=== PATIENT | male | born 1975 | race Caucasian/White ===

== ENCOUNTER 2021-01-22 16:44 | Inpatient (IN) | payer BC, SELFPAY ==
--- NOTE | ~2021-01-22 | CT_ITS ---
EXAMINATION: CT chest abdomen pelvis w con DATE: 01/23/2021 11:37 INDICATION: Lymphoma versus infection. Bodyaches. TECHNIQUE: Computed tomography (CT) of the chest, abdomen, and pelvis was performed with 100 mL Omnip aque-350 intravenous contrast. Automated exposure control and iterative reconstruction technique were employed. The dose-length product was 955.75 mGy-cm. COMPARISON: None FINDINGS: CHEST CT: Cluster small calcified nodules in the left lower lobe along with calcified mediastinal and left caryn r lymph nodes consistent with old granulomatous disease. No pneumonia, pulmonary edema or pleural eff usion. Heart size is normal. No pericardial effusion. No pathologically enlarged thoracic lymphadenop athy. Mild thoracic spondylosis with multiple Schmorl's nodes. No suspicious lytic or blastic bone le sions.. ABDOMEN/PELVIS CT: And a few small hepatic and splenic calcifications consistent with old granulomatous disease. Nonspec ific mild splenomegaly measuring 15.7 cm in maximal length. Gallbladder, pancreas, bilateral adrenal glands and right kidney are normal. Small region of cortical scarring at the upper pole of the left k idney likely sequela of prior infection or infarction. Bowels including the appendix are normal. Blad hadley is normal. Tiny fat-containing left inguinal hernia. No free intraperitoneal gas or fluid. No pat hologically enlarged abdominal or pelvic lymphadenopathy. Mild lumbar spondylosis with additional Werner morl's nodes. No suspicious lytic or blastic bone lesions. IMPRESSION: 1. No acute intrathoracic, abdominal or pelvic process. 2. Nonspecific mild splenomegaly. No pathologically enlarged lymphadenopathy in the chest, abdomen or pelvis to raise concern for lymphoma. Reviewed, dictated and finalized at location A. LRY ENGRAVER
--- NOTE | ~2021-01-22 | XR_ITS ---
EXAMINATION: XR chest 2V 01/22/2021 17:22 INDICATION: Chest tightness PROCEDURE: 2 view chest COMPARISON: 12/04/2011 FINDINGS: The lungs are clear. The cardiomediastinal silhouette is within normal limits. There are no pleural effusions. There is no pneumothorax suspected. IMPRESSION: 1: NO ACUTE CARDIOPULMONARY DISEASE. Reviewed, dictated and finalized at location A. IFICATIONS EXAMINER
--- NOTE | ~2021-01-22 | CT_ITS ---
EXAMINATION: CT soft tissue neck w con DATE: 01/24/2021 13:33 INDICATION: Left neck swelling. Tongue swelling. TECHNIQUE: Computed tomography (CT) of the neck was performed with 75 mL Omnipaque-350 intravenous co ntrast. Automated exposure control and iterative reconstruction technique were employed. The dose-smita gth product was 517.99 mGy-cm. COMPARISON: None FINDINGS: There is mild bilateral submandibular lymphadenopathy. For example, a right submandibular n ode measures 16 x 11 mm. The cervical carotid arteries are normal. There is mild mucosal thickening i n the paranasal sinuses. There are periapical lucencies adjacent to teeth 12, 14, 16, 29, and 31. The re is mild cervical spondylosis. IMPRESSION: 1. Distal disease. 2. Mild bilateral submandibular lymphadenopathy, likely reactive. Reviewed, dictated and finalized at location A. RVISOR TOY ASSEMBLY
[2021-01-22 17:03] VITALS: BP 170/92; PULSE 110; RESP 18; TEMP 37.1; O2SAT 100
--- NOTE | 2021-01-22 17:06 | ECG_ITS ---
Measurements Intervals [place] Rate: 108 P: 15 MI: 158 QRS: 36 QRSD: 92 T: 11 QT: 308 QTc: 413 Interpretive Statements SINUS TACHYCARDIA ABNORMAL ECG Electronically Signed On 01-22-2021 20:13:40 CLARIFICATION OPERATOR by Oliver Eaton D.O.
[2021-01-22 17:23] LABS: Hematocrit 43.4 % (42.0-52.0); Hemoglobin 14.8 g/dL (14.0-18.0); Mean Corpuscular HGB Conc 34.1 g/dl (32-36); Mean Corpuscular Hemoglobin 30.2 pg (26-34); Mean Corpuscular Volume 88.6 fl (80-100); Mean Platelet Volume 8.4 fl (7.4-10.4); Platelet Count Result 211 k/mm3 (150-375)
[2021-01-22 17:33] LABS: Prothrombin Time 12.9 Seconds (11.1-14.7)
[2021-01-22 17:36] LABS: Alanine Aminotransferase 76 U/L (4-50); Albumin Level 4.7 g/dL (3.5-5.1); Alkaline Phosphatase 87 U/L (38-126); Anion Gap 7 mmol/L (8-16); Aspartate Amino Transferase 46 U/L (17-59); Bilirubin,Total 0.8 mg/dL (0.2-1.3); Blood Urea Nitrogen 11 mg/dL (9-20); Carbon Dioxide 27 mmol/L (22-30); Chloride 99 mmol/L (98-107); Estimated CRCL calculation 91 ml/min; Estimated Glomerular Filt Rate > 60; Glucose 112 mg/dL (65-110); Lipase 82 U/L (23-300); Potassium 3.8 mmol/L (3.4-5.0); Sodium 133 mmol/L (137-145)
[2021-01-22 17:50] LABS: Troponin I 0.516 ng/mL (0.000-0.034)
[2021-01-22 18:11] LABS: Lymphocytes Percent Manual 55 % (18-44); Monocytes Absolute Manual 0.88 K/mm3 (0.1-0.90); Monocytes Percent Manual 44 % (3-9); Neutrophils Percent Manual 1 % (46-73); Total Cells Counted 100
[2021-01-22 18:12] LABS: Platelet Estimate Adequate (Adequate)
[2021-01-22 18:13] LABS: Atypical Lymphocytes Present
--- NOTE | 2021-01-22 18:26 | ECG_ITS ---
Measurements Intervals [place] Rate: 103 P: 27 ME: 164 QRS: 17 QRSD: 94 T: 15 QT: 316 QTc: 414 Interpretive Statements SINUS TACHYCARDIA BASELINE ARTIFACT- II, III, AVR, AVL, AVF, V1-V6 BORDERLINE ECG Electronically Signed On 01-24-2021 12:43:19 EXTENSION DIVISION DIRECTOR by Oliver Eaton D.O.
[2021-01-22] MEDS: ASPIRIN 81 MG CHEWABLE TABLET 324 MG PO (18:29)
--- NOTE | 2021-01-22 18:50 | ED.GENADULT ---
HPI - General Adult General Chief complaint: Unspecified Stated complaint: Not feeling well,sore all over,tongue swelling Time Seen by Provider: 01/22/21 18:05 Source: patient Mode of arrival: ambulatory Limitations: no limitations History of Present Illness HPI narrative: 45-year-old male Generally healthy Complains of a 1 day history of subjective fevers, generalized fatigue, body aches This morning he had chest tightness but that has been gone for hours He does not have a productive cough No dysuria or hematuria, no nausea or vomiting or diarrhea Related Data Home Medications Medication Instructions Recorded Confirmed No Home Medications 01/22/21 01/22/21 Allergies Allergy/AdvReac Type Severity Reaction Status Date / Time No Known Allergies Allergy Verified 01/22/21 17:05 Review of Systems Review of Systems: All systems reviewed & are unremarkable except as noted in HPI and below Constitutional: Constitutional: Reports no additional constitutional complaints, Denies chills, Reports excessive sweating, Denies fever(s), Denies headache(s), Reports lethargy and Reports malaise Eyes: Eyes: Reports no additional eye complaints and Denies change in vision ENT: Denies headache(s) and Denies sore throat Cardiovascular: Cardiovascular: Reports chest pain and Denies dyspnea Respiratory: Respiratory: Denies cough and Denies dyspnea Gastrointestinal: Gastrointestinal: Denies abdominal pain, Denies diarrhea and Denies vomiting Genitourinary: Genitourinary: Denies dysuria and Denies urinary frequency Musculoskeletal: Musculoskeletal: Reports back pain, Reports myalgias, Denies deformity, Reports arthralgias, Denies joint swelling, Denies numbness and Reports stiffness Integumentary/Breasts: Skin/Breast: Denies rash and Denies wounds Neurologic: Denies headache(s), Denies focal weakness and Denies numbness Psychiatric: Psychiatric: Reports no additional psychiatric complaints Endocrine: Endocrine: Reports no additional endocrine complaints Hematologic/Lymphatic: Hematologic/Lymphatic: Reports no additional hematologic/lymphatic complaints Allergic/Immunologic: Allergic/Immunologic: Reports no additional allergic/immunologic complaints Exam Const: General: cooperative, healthy appearing and no acute distress Orientation/consciousness: patient oriented x3 (alert) HENMT: Head: normal to inspection, normocephalic and atraumatic Ears: external ears normal General nose exam: no epistaxis Eyes: Conjunctivae: conjunctivae normal EOM: EOMs intact bilaterally Neck: Neck: normal visual inspection, supple and no JVD Resp: Effort & Inspection: normal respiratory effort and not labored Auscultation: clear to auscultation bilaterally, no rales, no rhonchi, no wheezes and other (BS =) Cardio: Rate: regular rate Rhythm: regular rhythm Heart sounds: no murmurs GI: GI Palp: Yes Soft to palpation and No Tenderness to palpation present (GI) Skin: General skin exam: normal color and no rashes or lesions noted Neuro: General: patient oriented x3 (alert) and moves all extremities Speech: normal speech Extrem: General: normal to inspection and no pedal edema Psych: Affect: normal affect Course Course Emergency Course: Tropes stable to slightly downtrending Second EKG also without ischemic changes Discussed with Dr. Rueda with regards to marked neutropenia Spoke with hospitalist for admission Vital Signs Vital signs: Vital Signs Temperature 37.1 C 01/22/21 17:03 Pulse Rate 110 H 01/22/21 17:03 Respiratory Rate 18 01/22/21 17:03 Blood Pressure 170/92 H 01/22/21 17:03 Pulse Oximetry 100 01/22/21 17:03 Temperature 37.1 C 01/22/21 17:03 Pulse Rate 100 01/22/21 20:55 Respiratory Rate 16 01/22/21 20:55 Blood Pressure 135/88 01/22/21 20:55 Pulse Oximetry 97 01/22/21 20:55 Medical Decision Making Medical Records Medical records reviewed: Yes I reviewed the
[2021-01-22 19:24] VITALS: BP 141/99; PULSE 99; RESP 20; O2SAT 98
[2021-01-22 19:27] LABS: Creatine Kinase 320 U/L (55-170); Lactic Acid Reflex 0.6 mmol/L (0.7-2.1)
[2021-01-22 19:31] LABS: CRP 7.1 mg/dL (<1.0)
[2021-01-22 19:38] LABS: Amphetamine Screen Urine Negative (Negative); Barbiturate Screen Urine Negative (Negative); Benzodiazepines Screen Urine Negative (Negative); Cannabinoid Screen Urine Negative (Negative); Cocaine Screen Urine Positive (Negative); Methadone Screen Urine Negative (Negative); Opiate Screen Urine Negative (Negative); Phencyclidine Screen Urine Negative (Negative)
[2021-01-22 19:52] LABS: Erythrocyte Sedimentation Rate 14 mm/hr (0-20)
[2021-01-22 20:42] LABS: Troponin I 0.466 ng/mL (0.000-0.034)
[2021-01-22 20:55] VITALS: BP 135/88; PULSE 100; RESP 16; O2SAT 97
[2021-01-22 23:59] LABS: Troponin I 0.373 ng/mL (0.000-0.034)
[2021-01-23] VITALS (16 sets, daily range): BP systolic 131–146; BP diastolic 78–91; PULSE 80–102; RESP 14–20; TEMP 36.3–36.9; O2SAT 97–100; BMI 24.2
--- NOTE | 2021-01-23 00:10 | ADMGEN ---
This patient, Payam Lee, was admitted to IMU Room 212-01. Patient/family oriented to hospital policies and general routines including ID bracelet, bed and alarms, visiting hours, pain management, procedures, bathroom and other care routines, personal items, smoking policy, room service/diet, and visiting hours. Information on how to activate the Rapid Response Team has been discussed. Patient/Family are encouraged to report perceived risks to care and to ask questions if they do not understand what they are told or what they should do.
[2021-01-23] MEDS: LACTATED RINGERS 1,000 ML 125 ML IV CONT ×2 (00:14→09:08)
[2021-01-23] MEDS: ACETAMINOPHEN 325 MG TABLET 650 MG PO ×3 (04:21→22:27)
--- NOTE | 2021-01-23 05:36 | PM.IMHP ---
H&P: HPI History of Present Illness Date/Time: 01/23/21 05:36 Chief Complaint: Fevers Narrative: This is a 45-year-old male with no significant past medical history patient presented to the emergency room after he has not been feeling well for the last 2 weeks or so he has been having night sweats body aches and pains ,sore throat, left neck subjective swelling poor appetite denies any lymphadenopathies, nausea, vomiting, abdominal pain, diarrhea, has been having cold-like symptoms and chest pain presented to the emergency room and preliminary workup was significant for elevated troponin low neutrophil count U tox was significant for cocaine present, chest x-ray was clear. Hematology-Oncology was consulted and patient has been admitted for further evaluation management and treatment. Review of Systems Review of Systems: Subjective fevers chills night sweats sore throat poor appetite Constitutional: Constitutional: Reports chills, Reports fatigue, Reports fever(s), Reports lethargy, Reports malaise, Reports night sweats and Reports poor appetite Eyes: Eyes: Denies change in vision ENT: Denies dysphagia, Denies nasal congestion, Denies nasal discharge, Denies nasal obstruction, Denies odynophagia and Reports sore throat Cardiovascular: Cardiovascular: Reports chest pain, Denies leg edema, Denies radiating jaw, neck or arm pain, Denies palpitations, Denies dyspnea, Denies dyspnea on exertion and Denies orthopnea Respiratory: Respiratory: Denies cough, Denies excessive phlegm production and Denies wheezing Gastrointestinal: Gastrointestinal: Denies abdominal pain, Denies dyspepsia, Denies heartburn, Denies diarrhea, Denies nausea and Denies vomiting Genitourinary: Genitourinary: Denies dysuria and Denies penile discharge Musculoskeletal: Musculoskeletal: Denies back pain, Reports myalgias and Denies neck pain Integumentary/Breasts: Skin/Breast: Denies erythema and Denies rash Neurologic: Denies dizziness, Denies focal weakness and Denies Sensory deficit (Neuro) Psychiatric: Psychiatric: Reports no additional psychiatric complaints and Reports as per HPI Endocrine: Endocrine: Denies heat intolerance, Denies polyphagia, Denies polydipsia, Denies polyuria and Denies palpitations Hematologic/Lymphatic: Hematologic/Lymphatic: Denies easy bleeding, Denies easy bruising and Denies lymphadenopathy Allergic/Immunologic: Allergic/Immunologic: Reports no additional allergic/immunologic complaints and Reports as per [facility] Family History Family History (Updated 01/23/21 @ 00:30 by Tomasa Umanzor RN) Other Unknown family medical history Social History Social History Smoking status: Never smoker Spiritual care concerns: No Meds Home Medications and Allergies Home Medications Medication Instructions Recorded Confirmed Type No Home Medications 01/22/21 01/22/21 History Allergies Allergy/AdvReac Type Severity Reaction Status Date / Time No Known Allergies Allergy Verified 01/22/21 17:05 Vital Signs Vital Signs - 24 hr 01/22/21 17:03 01/22/21 19:24 01/22/21 20:55 Temperature 98.7 F Pulse Rate 110 H 99 100 Respiratory Rate 18 20 16 Blood Pressure 170/92 H 141/99 H 135/88 Pulse Oximetry 100 98 97 01/23/21 00:14 01/23/21 00:15 01/23/21 02:00 Temperature 98.0 F Pulse Rate 102 H 99 99 Respiratory Rate 18 Blood Pressure 140/78 Pulse Oximetry 99 01/23/21 04:00 Temperature 98.0 F Pulse Rate 101 H Respiratory Rate 18 Blood Pressure 145/87 H Pulse Oximetry 99 Exam Narrative: Patient is laying in gurney Const: General: cooperative, comfortable, no acute distress, well developed, alert, awake and other (Well-appearing) Nutritional Appearance: average body habitus and thin Orientation/consciousness: patient oriented x3 HENMT: Head: normal to inspection, normocephalic and atraumatic Ears: hearing grossly normal bilaterally
[2021-01-23] MEDS: ASPIRIN 81 MG CHEWABLE TABLET PO (09:11)
[2021-01-23] MEDS: FILGRASTIM-SNDZ 300 MCG/0.5 ML SYRINGE SUB-Q (09:11)
[2021-01-23] MEDS: levoFLOXacin 500 MG TABLET PO (09:11)
[2021-01-23 09:17] LABS: Basophils Percent Auto 1.3 % (0.2-1.2); Hematocrit 43.8 % (42.0-52.0); Hemoglobin 14.8 g/dL (14.0-18.0); Lymphocytes Absolute Auto 1.08 K/mm3 (0.9-3.2); Lymphocytes Percent Auto 46.8 % (18.3-44.2); Mean Corpuscular HGB Conc 33.8 g/dl (32-36); Mean Corpuscular Hemoglobin 29.5 pg (26-34); Mean Corpuscular Volume 87.4 fl (80-100); Mean Platelet Volume 8.5 fl (7.4-10.4); Monocytes Absolute Auto 1.2 K/mm3 (0.1-0.6); Monocytes Percent Auto 51.1 % (2.6-8.5); Neutrophils Percent Auto 0.8 % (45.5-73.1); Platelet Count Result 219 k/mm3 (150-375); Red Blood Count 5.01 M/mm3 (4.6-6.20); Red Cell Distribution Width 11.8 % (11.5-14.5); White Blood Count 2.3 K/mm3 (4.5-10.0)
[2021-01-23 09:31] LABS: Alanine Aminotransferase 65 U/L (4-50); Albumin Level 4.4 g/dL (3.5-5.1); Alkaline Phosphatase 78 U/L (38-126); Aspartate Amino Transferase 34 U/L (17-59); Bilirubin,Total 0.9 mg/dL (0.2-1.3)
[2021-01-23 09:44] LABS: NT Pro B Type Natriuretic Pept 1100 pg/mL (5-100); Troponin I 0.342 ng/mL (0.000-0.034)
[2021-01-23 09:48] LABS: Monoscreen Negative (Negative); Negative Monotest Control Negative (Negative); Positive Monotest Control Positive (Positive)
[2021-01-23 10:18] LABS: Hepatitis B Surface Antigen Negative (Negative)
[2021-01-23 10:24] LABS: HAV RESULT Negative (Negative); Hepatitis B Core IgM Result Negative (Negative)
[2021-01-23 10:36] LABS: Hepatitis C Virus Antibody Negative (Negative)
[2021-01-23 11:59] LABS: HIV 1/2 Ab P24 Ag Result Negative (Negative)
--- NOTE | 2021-01-23 12:06 | PM.CNCAR ---
Assessment and Plan Assessment and plan (1) Neutropenia: Code(s): D70.9 - Neutropenia, unspecified Status: Acute Assessment and Plan: 45-year-old male with no known prior cardiac history. Patient admitted to the hospital with fever, myalgia, chest tightness. EKG does not show any acute ST segment abnormality. Troponins are mildly elevated along with NTProBNP. Clinical presentation suggestive of viral syndrome. -COVID-19 PCR is pending, along with other viral serology. -troponin elevation likely non ACS. Echocardiogram with Doppler is pending to assess LV/RV function and wall motion. -Hematology-Oncology has been consulted by the primary team. (2) Elevated troponin: Code(s): R77.8 - Other specified abnormalities of plasma proteins Status: Acute Assessment and Plan: Likely non ACS. Troponin elevation is in the setting of possible viral syndrome. Echo with Doppler is pending. History of Present Illness History of Present Illness Consult date/time: 01/23/21 12:06 DATE OF CONSULT: 01/23/2021 REASON FOR CONSULT: Elevated troponin REQUESTING PHYSICIAN:Tyler Warren MD CHIEF COMPLAINT: Fatigue, muscle aches HPI: 45-year-old male with no known prior cardiovascular history. Patient admitted to [facility] on 01/22/2021 with complaints of fatigue, fever, muscle aches and chest tightness. He has also noticed swelling in the left thumb and subjective feeling of swelling in the neck area. He denies any known prior cardiac history. He denies any recent sick contacts. Patient states that he has received 2 doses Moderna vaccine. He has not received booster yet. EKG on my personal evaluation showed sinus tachycardia without significant ST-T abnormality. Patient was found to have leukopenia with low neutrophil count and elevated lymphocyte and monocyte count. D-dimer negative. Troponin mildly elevated with peak troponin 0.46 at presentation which is trending downwards, current troponin level is 0.34. NTproBNP is elevated at 1100. Chest x-ray unremarkable. CT chest shows no acute intrathoracic, abdominal or pelvic process; Nonspecific mild splenomegaly. No pathologically enlarged lymphadenopathy in the chest, abdomen or pelvis to raise concern for lymphoma. Patient's urine drug screen is positive for cocaine, however, he denies any cocaine abuse. 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 Reason For Visit: neutropenia, elevated troponin, nonspecific chest Review of Systems Review of Systems: General: Positive for fever, chills, fatigue Psychological: Negative for anxiety, depression Ophthalmic: negative for loss of vision ENT: Negative for epistaxis, headaches Allergy and immunology: Negative for hives, nasal congestion Hematologic and lymphatic: Negative for overt bleeding problems Endocrine: Negative for hot flashes, palpitations Respiratory: Negative for cough, hemoptysis Cardiovascular: Positive for chest pressure Gastrointestinal: Negative for abdominal pain, nausea, vomiting, hematochezia Musculoskeletal: Negative for myalgia, joint pains Neurological: Negative for weakness Dermatological: Negative for rash, skin discoloration PMFSH Past Medical History Medical History (Updated 01/23/21 @ 12:35 by Celso Cunningham MD) No family history of coronary artery disease No significant past medical history Family History Family History (Updated 01/23/21 @ 12:35 by Celso Cunningham MD) Other Unknown family medical history Social History Social History (Updated 01/23/21 @ 12:36 by Celso Cunningham MD) Smoking status: Never smoker Alcohol intake: never Substance use: never Spiritual care concerns: No Meds Home Medications and Allergies Home Medications Medication Instructions Recorded Confirmed Type No Home Medications 01/22/21 01/22/21 History Allergies Allergy/AdvReac Type Severity Reaction Status Date /
--- NOTE | 2021-01-23 12:57 | PDONCCN ---
HPI - Date of Consult Date/Time: 01/23/21 12:57 Requesting Physician: China Davis PA-C Primary Care Provider: PHYSICIAN NOT ON STAFF - Consult Narrative Reason for consult: Leukopenia and neutropenia Narrative: Payam Lee is a 45 year old male who has been in good health came into the ER with sudden onset of chest tightness and discomfort while at work. He was having some fevers and chills the day prior to that. Patient has a history of COVID infection in September of 2020. He was also experienced some night sweats and body aches for last 2 weeks duration. Denies any rash in diarrhea. Sex x-ray came back negative. CT chest abdomen pelvis showed mild splenomegaly with no pathologically enlarged lymph node and no acute intrathoracic, abdominal or pelvic process. Labs showed WBC of 2.0 with only 1% neutrophil. Neupogen was started. He denies any previous history of blood disorders. There is a family history of multiple myeloma in father. Review of Systems - Review of Systems All systems reviewed & are unremarkable except as noted in HPI and bel - Neurologic Denies headache(s), Denies focal weakness, Denies numbness, Denies sensory deficit [facility] Medical History: Medical History (Last Updated 01/23/21 @ 12:35 by Celso Cunningham MD) No family history of coronary artery disease No significant past medical history Family History: Family History (Last Updated 01/23/21 @ 12:35 by Celso Cunningham MD) Other Unknown family medical history - Social History Social History: Social History (Last Updated 01/23/21 @ 12:36 by Celso Cunningham MD) Alcohol Use: Alcohol intake: never Substance Use: Substance use: never Others: Spiritual care concerns: No Smoking Status: Smoking status: Never smoker Meds Home Medications Medication Instructions Recorded Confirmed Type No Home Medications 01/22/21 01/22/21 History Allergies Allergy/AdvReac Type Severity Reaction Status Date / Time No Known Allergies Allergy Verified 01/22/21 17:05 Results - Labs CBC & Chem 7: 01/23/21 09:07 01/22/21 17:16 Labs: Short CBC 01/22/21 01/23/21 Range/Units 17:16 09:07 WBC 2.0 L 2.3 L (4.5-10.0) K/mm3 Hgb 14.8 14.8 (14.0-18.0) g/dL Hct 43.4 43.8 (42.0-52.0) % Plt Count 211 219 (150-375) k/mm3 [facility] 01/22/21 17:16 Sodium 133 L Potassium 3.8 Chloride 99 Carbon Dioxide 27 BUN 11 Creatinine 1.00 Glucose 112 H Calcium 9.0 Cardiac Enzymes 01/22/21 01/22/21 01/22/21 Range/Units 17:16 19:11 20:09 Total Creatine Kinase 320 H (55-170) U/L Troponin I 0.516 H* 0.466 H* (0.000-0.034) ng/mL 01/22/21 01/23/21 Range/Units 23:24 09:02 Total Creatine Kinase (55-170) U/L Troponin I 0.373 H* 0.342 H* (0.000-0.034) ng/mL Liver Function 01/22/21 01/23/21 Range/Units 17:16 09:07 Total Bilirubin 0.8 0.9 (0.2-1.3) mg/dL Direct Bilirubin 0.0 (0-0.3) mg/dL AST 46 34 (17-59) U/L ALT 76 H 65 H (4-50) U/L Alkaline Phosphatase 87 78 (38-126) U/L Albumin 4.7 4.4 (3.5-5.1) g/dL Assessment and Plan - Additional Plan Leukopenia and neutropenia. Patient is a 45-year-old pleasant male who has been in good health except history of COVID infection in September 2020. He developed sudden onset of body aches fevers and chills and chest tightness. He has some sore throat and was complaining of swelling in the tongue as well. Patient also was dealing with left thumb infection. Labs showed profound neutropenia with leukopenia and normal hemoglobin and platelet count. ALT was slightly elevated kidney function was normal. Sedimentation rate was normal. CT scan findings showed no evidence of lymphadenopathy but there was some mild splenomegaly. These findings are consistent with viral infection and neutropenia with possible bone marrow suppression. Parvovirus serology is pending. No need f
--- NOTE | 2021-01-23 14:06 | PM.IMPN ---
Progress Note: A&P Assessment and Plan (1) Nonspecific chest pain: Code(s): R07.9 - Chest pain, unspecified Status: Acute Assessment and Plan: Unclear etiology but it has resolved -troponins and BNP elevated -echo pending -could be secondary to some type of occult infection or possibly the cocaine he did last weekend -cardiology consulted, continue telemetry. Patient instructed call out if he has been for chest pain (2) Elevated troponin: Code(s): R77.8 - Other specified abnormalities of plasma proteins Status: Acute Assessment and Plan: As above (3) Neutropenia: Code(s): D70.9 - Neutropenia, unspecified Status: Acute Assessment and Plan: Significant neutropenia noted on labs -CT chest abdomen pelvis show no signs pathological enlarged lymph nodes -could be due to a viral illness--await COVID and parvo test. HIV, mono, influenza, and hepatitis all negative. -oncology has been consulted and recommended Neupogen and precautions. No need for bone marrow biopsy at this time -monitor with daily labs (4) Cocaine use: Code(s): F14.90 - Cocaine use, unspecified, uncomplicated Status: Acute Assessment and Plan: Patient states this is not a very frequent event but I cautioned him about the use of drugs and to avoid cocaine altogether Time Spent With Patient Time with patient: 25 - 35 minutes Subjective Date/time seen: 01/23/21 14:06 Interval history: Pt is a 45-year-old male here for chest pain and lethargy. Patient was seen today and states he is feeling okay. He has a sore throat and his left thumb is a little swollen and those are his only complaints. He has not had any further chest pain. He denies nausea, vomiting, fevers, chills, abdominal pain, leg swelling, diarrhea or constipation. He said he is not eating much because of the throat pain. He was at a bachelor alliance party on Friday and may have done some cocaine but he did does not typically do drugs. No one else is sick to his knowledge. He has had to mRNA vaccines. Review of Systems Review of Systems: All systems reviewed & are unremarkable except as noted in HPI and below Exam Narrative: General: Well developed well nourished patient in NAD HEENT: normocephalic Neck: supple Neuro: Alert and oriented x4 CV:RRR Resp:CTA Abd: Soft, non distended. No pain to palpation. Positive bowel sounds Extremities: No swelling, erythema, or pain to palpation to lower extremities. Left thumb with mild erythema and swelling. Able to move it in all directions. Objective Data Vital Signs Vital Signs: Vital Signs - 24 hr 01/22/21 17:03 01/22/21 19:24 01/22/21 20:55 Temperature 98.7 F Pulse Rate 110 H 99 100 Respiratory Rate 18 20 16 Blood Pressure 170/92 H 141/99 H 135/88 Pulse Oximetry 100 98 97 01/23/21 00:14 01/23/21 00:15 01/23/21 02:00 Temperature 98.0 F Pulse Rate 102 H 99 99 Respiratory Rate 18 Blood Pressure 140/78 Pulse Oximetry 99 01/23/21 04:00 01/23/21 06:00 01/23/21 08:00 Temperature 98.0 F 97.3 F L Pulse Rate 101 H 91 90 Respiratory Rate 18 14 Blood Pressure 145/87 H 131/83 Pulse Oximetry 99 98 01/23/21 10:00 01/23/21 12:00 Temperature 98 F Pulse Rate 90 92 Respiratory Rate 20 Blood Pressure 140/84 Pulse Oximetry 100 Intake/Output Intake/Output: Intake & Output 01/20/21 01/21/21 01/22/21 01/23/21 23:59 23:59 23:59 23:59 Intake Total 1600 Balance 1600 Meds/Results Medications: Active Medications Generic Name Dose Route Start Last Admin Trade Name Freq PRN Reason Stop Dose Admin Acetaminophen 650 mg 01/22/21 21:10 01/23/21 04:21 Acetaminophen 325 Mg Tablet PO 650 mg Q4H PRN Administration Mild Pain (1-3) or Fever Aspirin 81 mg 01/23/21 08:00 01/23/21 09:11 Aspirin 81 Mg Chewable Tablet PO 81 mg DAILY@0800 ARAMIS Administration Filgrastim-Sndz 300 mcg 01/23/21
[2021-01-24] VITALS (12 sets, daily range): BP systolic 140–149; BP diastolic 87–99; PULSE 86–130; RESP 16–18; TEMP 36.4–37.3; O2SAT 98–99
--- NOTE | 2021-01-24 | ECHO_ITS ---
Patient Info Name: Payam Lee Age: 45 years : 1975 Gender: Male Ht: 72 in Wt: 178 lbs BSA: 2.03 m2 HR: 87 bpm BP: 140 / 87 mmHg Heart Rhythm: Sinus Rhythm Technical Quality: Good Exam Date: 01/24/2021 8:48 AM Exam Location: [facility] Patient Status: Outpatient Admit Date: 01/22/2021 Staff Ordering Physician: Marilu Lucio MD Lineman: [place] Attending Provider: China Davis PA-C Referring Physician: Khadijah OSBORN; Exam Type: CA echo doppler color flow Study Info Indications R74.8 - Elevated troponin Complete two-dimensional, color flow and Doppler transthoracic echocardiogram is performed. Summary 1. Complete two-dimensional, color flow and Doppler transthoracic echocardiogram is performed. 2. Left ventricular chamber dimension is normal. 3. Left ventricular systolic function is normal, estimated at 60-65%. 4. There is mild asymmetric septal left ventricular hypertrophy. 5. The left ventricular diastolic function is grade I diastolic dysfunction. 6. There is trace mitral valve regurgitation. 7. There is no aortic valve stenosis. Left Ventricle Left ventricular chamber dimension is normal. Left ventricular systolic function is normal, estimated at 60-65%. There is mild asymmetric septal left ventricular hypertrophy. The left ventricular diastolic function is grade I diastolic dysfunction. Right Ventricle Right ventricular chamber dimension is normal. Right ventricular systolic function is normal. Left Atria Left atrial chamber dimension is normal. Right Atria Right atrial chamber dimension is normal. Aortic Valve The aortic valve is trileaflet. There is no aortic valve stenosis. There is no aortic valve regurgitation. Pulmonic Valve The pulmonic valve is normal. There is trace pulmonic regurgitation. Mitral Valve The mitral valve has normal leaflets. There is trace mitral valve regurgitation. Tricuspid Valve The tricuspid valve leaflets are normal. There is trace tricuspid valve regurgitation. Unable to estimate PA systolic pressure due to poor spectral resolution of tricuspid regurgitant jet velocity. Pericardium/Pleural The pericardium appears normal. There is no pericardial effusion. Inferior Vena Cava Normal inferior vena cava with >50% collapse upon inspiration consistent with normal right atrial pressure, 5 mmHg. Aorta The aortic root size at the sinus of Valsalva is mildly dilated. The prox ascending aorta size is normal. Left Ventricular Outflow Tract Name Value Normal LVOT 2D LVOT Diameter 2.2 cm LVOT Doppler LVOT Peak Gradient 4 mmHg LVOT Mean Gradient 2 mmHg LVOT VTI 17 cm LVOT VTI/AV VTI Ratio 0.8 LVOT Stroke Volume 62 ml LVOT CO 4.9 l/min LVOT CI 2.4 l/min/m2 Pulmonic Valve Name Value N
[2021-01-24 02:02] LABS: SARS-CoV-2 RNA PCR Negative
[2021-01-24] MEDS: ACETAMINOPHEN 325 MG TABLET 650 MG PO ×3 (04:21→20:06)
[2021-01-24 05:48] LABS: Basophils Percent Auto 0.9 % (0.2-1.2); Hematocrit 43.7 % (42.0-52.0); Hemoglobin 14.5 g/dL (14.0-18.0); Immature Granulocyte Absolute 0.03 K/mm3 (0.00-0.031); Immature Granulocyte Percent A 0.9 % (0-0.5); Lymphocytes Absolute Auto 1.19 K/mm3 (0.9-3.2); Lymphocytes Percent Auto 35.5 % (18.3-44.2); Mean Corpuscular HGB Conc 33.2 g/dl (32-36); Mean Corpuscular Hemoglobin 29.3 pg (26-34); Mean Corpuscular Volume 88.3 fl (80-100); Mean Platelet Volume 8.5 fl (7.4-10.4); Monocytes Absolute Auto 1.9 K/mm3 (0.1-0.6); Monocytes Percent Auto 57.3 % (2.6-8.5); Neutrophils Absolute Auto 0.2 K/mm3 (1.3-6.7); Neutrophils Percent Auto 5.4 % (45.5-73.1); Platelet Count Result 235 k/mm3 (150-375); Red Blood Count 4.95 M/mm3 (4.6-6.20); Red Cell Distribution Width 11.6 % (11.5-14.5); White Blood Count 3.4 K/mm3 (4.5-10.0)
[2021-01-24 07:24] LABS: Alanine Aminotransferase 59 U/L (4-50); Albumin Level 4.4 g/dL (3.5-5.1); Alkaline Phosphatase 82 U/L (38-126); Anion Gap 9 mmol/L (8-16); Aspartate Amino Transferase 36 U/L (17-59); Blood Urea Nitrogen 11 mg/dL (9-20); CRP 14.1 mg/dL (<1.0); Calcium 9.1 mg/dL (8.4-10.2); Carbon Dioxide 28 mmol/L (22-30); Chloride 95 mmol/L (98-107); Estimated CRCL calculation 84 ml/min; Estimated Glomerular Filt Rate > 60; Glucose 103 mg/dL (65-110); Potassium 3.8 mmol/L (3.4-5.0); Sodium 132 mmol/L (137-145)
[2021-01-24] MEDS: ASPIRIN 81 MG CHEWABLE TABLET PO (09:21)
[2021-01-24] MEDS: levoFLOXacin 500 MG TABLET PO (09:21)
[2021-01-24] MEDS: FILGRASTIM-SNDZ 300 MCG/0.5 ML SYRINGE SUB-Q (09:21)
--- NOTE | 2021-01-24 09:48 | PM.IMPN ---
Progress Note: A&P Assessment and Plan (1) Neutropenia: Code(s): D70.9 - Neutropenia, unspecified Status: Acute Assessment and Plan: Significant neutropenia noted on labs -CT chest abdomen pelvis show no signs pathological enlarged lymph nodes -could be due to a viral illness--parvo test. COVID-19, HIV, mono, influenza, and hepatitis all negative. -oncology has been consulted and recommended Neupogen and precautions. No need for bone marrow biopsy at this time -monitor with daily labs (2) Swelling, mass, or lump in head and neck: Code(s): R22.0 - Localized swelling, mass and lump, head; R22.1 - Localized swelling, mass and lump, neck Status: Acute Assessment and Plan: Patient states he has had swelling in his tongue for the last few days today on exam. There seems to be a nodule in that area and some of his cervical lymph nodes are swollen as well. I am going to get a soft tissue neck CT and I have asked ENT to come evaluate him for possible biopsy. I called the lab and it does not sound like we are able to do HPV swabs of the throat. No history of known HPV exposure or cigarettes/chewing tobacco use. Concerning for some type of head, mouth and/or neck cancer/lymphoma with labs. Suppose could also be due to unknown viral illness. Pt remains afebrile. (3) Nonspecific chest pain: Code(s): R07.9 - Chest pain, unspecified Status: Acute Assessment and Plan: Unclear etiology but it has resolved -troponins and BNP elevated -echo pending -could be secondary to some type of occult infection or possibly the cocaine he did last weekend -cardiology consulted, continue telemetry. Patient instructed call out if he has been for chest pain (4) Elevated troponin: Code(s): R77.8 - Other specified abnormalities of plasma proteins Status: Acute Assessment and Plan: As above (5) Cocaine use: Code(s): F14.90 - Cocaine use, unspecified, uncomplicated Status: Acute Assessment and Plan: Patient states this is not a very frequent event but I cautioned him about the use of drugs and to avoid cocaine altogether Subjective Date/time seen: 01/24/21 09:48 Interval history: Pt is a 45-year-old male here for chest pain and lethargy. Patient was seen today and states he is feeling okay. His throat is still bothering him and he has some swelling to the left side of his throat and tongue. He did not tell me about the tongue swelling yesterday but did let me know is been going on for a couple days. He says he has a good appetite it is just hard to eat because of the pain. He does not have any history of chewing tobacco or smoking but has tried them in the past. He has no history of HPV that he knows of. He denies any further chest pain. No shortness of breath, nausea, vomiting, diarrhea or constipation. Exam Narrative: General: Well developed well nourished patient in NAD HEENT: Left lateral side of the tongue appears to be swollen with some type of nodule. His left cervical lymph nodes appear to be swollen as well. Neck: No pain but swelling as noted above Neuro: Alert and oriented x4 CV:RRR Resp:CTA Abd: Soft, non distended. No pain to palpation. Positive bowel sounds Extremities: No swelling, erythema, or pain to palpation to lower extremities. Left thumb with mild erythema and swelling. Able to move it in all directions. Objective Data Vital Signs Vital Signs: Vital Signs - 24 hr 01/23/21 10:00 01/23/21 12:00 01/23/21 14:00 Temperature 98 F Pulse Rate 90 91 99 Respiratory Rate 20 Blood Pressure 140/84 Pulse Oximetry 98 01/23/21 15:52 01/23/21 16:00 01/23/21 18:00 Temperature 98.4 F Pulse Rate 97 92 Respiratory Rate 16 Blood Pressure 146/91 H Pulse Oximetry 98 99 01/23/21 20:00 01/23/21 22:00 01/23/21 23:12 Temperature 97.7 F 97.7 F Pulse Rate 94 91 80 Respiratory Rate 18 18 Blo
--- NOTE | 2021-01-24 11:36 | PM.PNCARD ---
Progress Note: A&P Assessment and Plan (1) Elevated troponin: Code(s): R77.8 - Other specified abnormalities of plasma proteins Status: Acute Assessment and Plan: 45-year-old male with no known prior cardiac history. Patient admitted to the hospital with fever, myalgia, chest tightness. EKG does not show any acute ST segment abnormality. Troponins are mildly elevated along with NTProBNP. Clinical presentation suggestive of viral syndrome. Very likely type 2 infarct not acute coronary syndrome and/or plaque rupture. Troponin elevation is in the setting of possible viral syndrome and/or cocaine abuse. Echo personally reviewed normal LV systolic function without regional wall motion abnormalities. Pericardium unremarkable. Less likely myopericarditis secondary to viral illness but remains a possibility. -repeat 12 lead EKG. -no plans for ischemic evaluation at this time. Will follow-up as needed. Please do not hesitate to contact us with any additional questions or concerns. He will follow-up with Dr. Cunningham as an outpatient in 4 weeks. Discussed these findings with the patient. Patient verbalized understanding and agreed with plan of care. All questions answered to his satisfaction. (2) Cocaine use: Code(s): F14.90 - Cocaine use, unspecified, uncomplicated Status: Acute Assessment and Plan: Must absolutely remain abstinent from cocaine and excessive alcohol intake. Likely contribution to troponin elevation and possibly remote chest pain complaints. Echo without regional wall motion abnormalities or ischemic changes by EKG. (3) Nonspecific chest pain: Code(s): R07.9 - Chest pain, unspecified Status: Acute Assessment and Plan: Resolved. No regional wall motion abnormalities by echocardiogram. EF preserved no significant valve pathology. (4) Neutropenia: Code(s): D70.9 - Neutropenia, unspecified Status: Acute Assessment and Plan: -COVID-19 PCR negative, parvovirus B19 pending. -troponin elevation likely non ACS. Echocardiogram without LV RV hypokinesis or regional wall motion abnormalities. -appreciate Hematology-Oncology involvement and recommendations. Subjective Date/time seen: Date of service: 01/24/21 11:36 Follow-up for elevated troponin No chest pain, shortness of breath, palpitations. Telemetry unremarkable. Patient feeling better since admission. Throat less sore as well as tongue but still uncomfortable swallowing. 2D completed this morning. He has no other complaints at this time. No fevers or chills nausea vomiting. Review of Systems Review of Systems: All systems reviewed & are unremarkable except as noted in HPI and below Constitutional: Constitutional: Reports as per HPI and Reports no additional constitutional complaints Eyes: Eyes: Reports as per HPI and Reports no additional eye complaints ENT: Reports system reviewed and no additional complaints, except as documented and Reports as per HPI Cardiovascular: Cardiovascular: Reports as per HPI and Reports no additional cardiovascular complaints Respiratory: Respiratory: Reports as per HPI and Reports no additional respiratory complaints Gastrointestinal: Gastrointestinal: Reports as per HPI and Reports no additional gastrointestinal complaints Genitourinary: Genitourinary: Reports no additional male genitourinary complaints and Reports as per HPI Musculoskeletal: Musculoskeletal: Reports no additional musculoskeletal complaints and Reports as per HPI Integumentary/Breasts: Skin/Breast: Reports system reviewed and no additional complaints, except as docu and Reports as per HPI Neurologic: Reports system reviewed and no additional complaints, except as documented and Reports as per HPI Psychiatric: Psychiatric: Reports no additional psychiatric complaints and Reports as per HPI Endocrine: Endocrine: Reports no additional endocrine complaints and Reports as per HPI
--- NOTE | 2021-01-24 18:31 | WPDCN ---
Assessment and Plan Assessment and plan (1) Swelling, mass, or lump in head and neck: Code(s): R22.0 - Localized swelling, mass and lump, head; R22.1 - Localized swelling, mass and lump, neck Status: Acute Assessment and Plan: Would not biopsy at this time. If present for 3 more weeks ~ one month total would recommend biopsy. Please have the patient follow up with me for any and all issues including persistent tongue lesion. (2) Tongue lesion: Code(s): K14.8 - Other diseases of tongue Status: Acute HPI Data of Consult Date/Time: 01/24/21 18:31 Requesting Physician: China Davis PA-C Primary Care Provider: PHYSICIAN NOT ON STAFF Consult Narrative Narrative: Payam Lee is a 45 year old male with past medical history of neutropenia. Patient reported feeling ill, presented to ER, lab values demonstrated the aforementioned abnormalities. Patient reports tongue edema, initially posterior, migrating anteriorly. ENT consulted for further evaluation of tongue lesion. Patient reports it's been present for several days. Mildly painful. PMFSH Past Medical History Medical History (Updated 01/24/21 @ 18:36 by Gage Kelly MD) No family history of coronary artery disease No significant past medical history Family History Family History (Updated 01/23/21 @ 12:35 by Celso Cunningham MD) Other Unknown family medical history Social History Social History (Updated 01/23/21 @ 12:36 by Celso Cunningham MD) Smoking status: Never smoker Alcohol intake: never Substance use: never Spiritual care concerns: No Meds Home Medications and Allergies Home Medications Medication Instructions Recorded Confirmed Type No Home Medications 01/22/21 01/22/21 History Allergies Allergy/AdvReac Type Severity Reaction Status Date / Time No Known Allergies Allergy Verified 01/22/21 17:05 Vital Signs Vital Signs - 24 hr 01/23/21 20:00 01/23/21 22:00 01/23/21 23:12 Temperature 36.5 C 36.5 C Pulse Rate 94 91 80 Respiratory Rate 18 18 Blood Pressure 137/85 137/85 Pulse Oximetry 97 99 01/23/21 23:56 01/24/21 00:00 01/24/21 02:00 Temperature Pulse Rate 80 87 87 Respiratory Rate Blood Pressure Pulse Oximetry 01/24/21 03:23 01/24/21 04:00 01/24/21 06:00 Temperature 36.6 C Pulse Rate 87 93 87 Respiratory Rate 18 18 Blood Pressure 140/87 Pulse Oximetry 99 99 01/24/21 08:00 01/24/21 10:00 01/24/21 12:00 Temperature 36.4 C 36.6 C Pulse Rate 86 100 90 Respiratory Rate 16 18 Blood Pressure 148/99 H 149/95 H Pulse Oximetry 98 99 01/24/21 14:00 01/24/21 16:00 Temperature 36.6 C Pulse Rate 92 99 Respiratory Rate 18 Blood Pressure 147/94 H Pulse Oximetry 99 Exam HENMT: Other: right anteroinferior punctate lesion, left lateral larger lesion, exanthem like appearance. Several centimeters across. Results Labs CBC & Chem 7: 01/24/21 05:29 01/24/21 05:29 Labs: Short CBC 01/22/21 01/23/21 01/24/21 Range/Units 17:16 09:07 05:29 WBC 3.4 L (4.5-10.0) K/mm3 Hgb 14.5 (14.0-18.0) g/dL Hct 43.7 (42.0-52.0) % Plt Count 235 (150-375) k/mm3 Absolute Neuts (auto) Not Reportable 0.0 L 0.2 L BMP 01/24/21 05:29 Sodium 132 L Potassium 3.8 Chloride 95 L Carbon Dioxide 28 BUN 11 Creatinine 1.10 Glucose 103 Calcium 9.1 Liver Function 01/24/21 Range/Units 05:29 Total Bilirubin 1.0 (0.2-1.3) mg/dL Direct Bilirubin 0.0 (0-0.3) mg/dL AST 36 (17-59) U/L ALT 59 H (4-50) U/L Alkaline Phosphatase 82 (38-126) U/L Albumin 4.4 (3.5-5.1) g/dL
[2021-01-24] MEDS: MELATONIN 5 MG TABLET PO (22:44)
[2021-01-25] VITALS (7 sets, daily range): BP systolic 133–150; BP diastolic 88–95; PULSE 68–99; RESP 16–20; TEMP 36.2–37; O2SAT 97–98
--- NOTE | 2021-01-25 03:35 | PC.NURSE ---
PT ADMITTED 323-2 PER WHEEL CHAIR,PLACED ON TEL SHOWING SINUS RYTHEM HR 83.
[2021-01-25 08:45] LABS: Hematocrit 45.7 % (42.0-52.0); Hemoglobin 15.4 g/dL (14.0-18.0); Mean Corpuscular HGB Conc 33.7 g/dl (32-36); Mean Corpuscular Hemoglobin 29.9 pg (26-34); Mean Corpuscular Volume 88.7 fl (80-100); Mean Platelet Volume 8.7 fl (7.4-10.4); Platelet Count Result 267 k/mm3 (150-375); Red Blood Count 5.15 M/mm3 (4.6-6.20); Red Cell Distribution Width 11.9 % (11.5-14.5)
[2021-01-25 08:59] LABS: Alanine Aminotransferase 55 U/L (4-50); Albumin Level 4.3 g/dL (3.5-5.1); Alkaline Phosphatase 85 U/L (38-126); Anion Gap 9 mmol/L (8-16); Aspartate Amino Transferase 37 U/L (17-59); Bilirubin,Total 0.5 mg/dL (0.2-1.3); Blood Urea Nitrogen 14 mg/dL (9-20); Carbon Dioxide 31 mmol/L (22-30); Chloride 98 mmol/L (98-107); Estimated CRCL calculation 77 ml/min; Estimated Glomerular Filt Rate > 60; Glucose 110 mg/dL (65-110); Potassium 3.8 mmol/L (3.4-5.0); Sodium 138 mmol/L (137-145)
[2021-01-25 09:02] LABS: NT Pro B Type Natriuretic Pept 411 pg/mL (5-100)
[2021-01-25 09:12] LABS: CRP 13.6 mg/dL (<1.0)
[2021-01-25] MEDS: FILGRASTIM-SNDZ 300 MCG/0.5 ML SYRINGE SUB-Q (09:27)
[2021-01-25] MEDS: levoFLOXacin 500 MG TABLET PO (09:27)
[2021-01-25 10:53] LABS: Band Neutrophils Percent 24 % (0-6); Lymphocytes Percent Manual 35 % (18-44); Monocytes Absolute Manual 1.76 K/mm3 (0.1-0.90); Monocytes Percent Manual 22 % (3-9); Neutrophils Absolute Manual 3.44 K/mm3 (1.3-6.7); Neutrophils Percent Manual 19 % (46-73); Total Cells Counted 100
[2021-01-25 10:54] LABS: Atypical Lymphocytes Present; Platelet Estimate Adequate (Adequate)
--- NOTE | 2021-01-25 11:54 | PM.PNCARD ---
Progress Note: A&P Assessment and Plan (1) Elevated troponin: Code(s): R77.8 - Other specified abnormalities of plasma proteins <EDER Rodarte - Last Filed: 01/25/21 16:11> Status: Acute <DEER Rodarte - Last Filed: 01/25/21 16:11> Assessment and Plan: 45-year-old male with no known prior cardiac history. Patient admitted to the hospital with fever, myalgia, chest tightness. EKG does not show any acute ST segment abnormality. Troponins are mildly elevated along with NTProBNP. Clinical presentation suggestive of viral syndrome. Very likely type 2 infarct not acute coronary syndrome and/or plaque rupture. Troponin elevation is in the setting of possible viral syndrome and/or cocaine abuse. -Echo: Normal LV systolic function, no regional wall motion abnormalities -repeat 12 lead EKG. -no plans for ischemic evaluation at this time. Will follow-up as needed. Please do not hesitate to contact us with any additional questions or concerns. He will follow-up with Dr. Cunningham as an outpatient in 4 weeks. Discussed these findings with the patient. Patient verbalized understanding and agreed with plan of care. All questions answered to his satisfaction. <EDER Rodarte - Last Filed: 01/25/21 16:11> (2) Cocaine use: Code(s): F14.90 - Cocaine use, unspecified, uncomplicated <KYLAH RodarteC - Last Filed: 01/25/21 16:11> Status: Acute <EDER Rodarte - Last Filed: 01/25/21 16:11> Assessment and Plan: Must absolutely remain abstinent from cocaine and excessive alcohol intake. Likely contribution to troponin elevation and possibly remote chest pain complaints. Echo without regional wall motion abnormalities or ischemic changes by EKG. <EDER Rodarte - Last Filed: 01/25/21 16:11> (3) Nonspecific chest pain: Code(s): R07.9 - Chest pain, unspecified <EDER Rodarte - Last Filed: 01/25/21 16:11> Status: Acute <EDER Rodarte - Last Filed: 01/25/21 16:11> Assessment and Plan: Resolved. No regional wall motion abnormalities by echocardiogram. EF preserved no significant valve pathology. <EDER Rodarte - Last Filed: 01/25/21 16:11> (4) Neutropenia: Code(s): D70.9 - Neutropenia, unspecified <EDER Rodarte - Last Filed: 01/25/21 16:11> Status: Acute <EDER Rodarte - Last Filed: 01/25/21 16:11> Assessment and Plan: -Improving today -COVID-19 PCR negative, parvovirus B19 pending. -troponin elevation likely non ACS. Echocardiogram without LV RV hypokinesis or regional wall motion abnormalities. -appreciate Hematology-Oncology involvement and recommendations. <EDER Rodarte - Last Filed: 01/25/21 16:11> Additional Plan Attending addendum: I agree with the above documentation and plan of care as outlined. <Ulysses Jernigan MD - Last Filed: 01/25/21 16:14> Subjective Date/time seen: 01/25/21 11:54 Cardiology follow up for elevated troponin Date of service 01/25/21: No acute events overnight. Feeling well today. Wants to go home. <EDER Rodarte - Last Filed: 01/25/21 16:11> Review of Systems Review of Systems: All systems reviewed & are unremarkable except as noted in HPI and below <EDER Rodarte - Last Filed: 01/25/21 16:11> Constitutional: Constitutional: Reports as per HPI and Reports no additional constitutional complaints <EDER Rodarte - Last Filed: 01/25/21 16:11> Eyes: Eyes: Reports as per HPI and Reports no additional eye complaints <EDER Rodarte - Last Filed: 01/25/21 16:11> ENT: Reports system reviewed and no additional complaints, except as documented and Reports as per HPI <EDER Rodarte - Last Filed: 12/16/21 16:11> Cardiovascular: Cardiovascular: Reports as per HPI and Reports no additional cardiovascular complaints <TONG RodarteN
--- NOTE | 2021-01-25 14:13 | PM.DS ---
DS: Admitting Diagnosis Discharge Date 01/25/21 Admitting Diagnosis Neutropenia DS: Discharge Diagnosis Discharge Diagnosis (1) Neutropenia: Code(s): D70.9 - Neutropenia, unspecified Status: Acute Assessment and Plan: Significant neutropenia noted on labs on admission -CT chest abdomen pelvis show no signs pathological enlarged lymph nodes -soft tissue neck showed dental disease and mild bilateral submandibular lymphadenopathy likely reactive -viral infection suspected but none detected. CMV, hepatitis, mono, HIV, COVID, parvo, influenza negative -oncology was consulted and recommended Neupogen which was started. This improved his ANC immensely. They did not recommend any bone marrow biopsy at this time. The plan is to follow him up in the clinic in 1 month and redraw labs at that time (2) Swelling, mass, or lump in head and neck: Code(s): R22.0 - Localized swelling, mass and lump, head; R22.1 - Localized swelling, mass and lump, neck Status: Acute Assessment and Plan: Patient states his tongue had some swelling to the left lateral area. Nothing seen on CT. ENT was consulted who recommended biopsy in 3 weeks if the swelling continues. The patient states that this is already getting better. He will follow up with ENT as needed (3) Nonspecific chest pain: Code(s): R07.9 - Chest pain, unspecified Status: Acute Assessment and Plan: Unclear etiology but it has resolved -troponins and BNP elevated -echo showed an EF of 60 65% with mild asymmetric septal left ventricular hypertrophy and grade 1 diastolic dysfunction. Cardiology was consulted and did not recommend any additional testing or treatment at this time. Chest pain could have been due to viral illness or cocaine use -they plan to continue aspirin and follow him outpatient (4) Elevated troponin: Code(s): R77.8 - Other specified abnormalities of plasma proteins Status: Acute Assessment and Plan: As above (5) Cocaine use: Code(s): F14.90 - Cocaine use, unspecified, uncomplicated Status: Acute Assessment and Plan: Patient states this is not a very frequent event but I cautioned him about the use of drugs and to avoid cocaine altogether DS: Summary Hospital Course Hospital Course: dos 01/25/21 Patient is a relatively healthy 45-year-old male who presented to the emergency room for fevers, weakness, body aches and chest tightness. Vitals in the ER showed temperature 37.1? C, pulse 110, respiratory rate 18, blood pressure 170/92, pulse ox 100 on room air. His CBC revealed severe neutropenia. White blood cell count was 2.0 and he only had 1% neutrophils with 55% lymphocytes and 44% monocytes. Hemoglobin and platelets were normal. Troponins initially elevated 0.516--> 0.466--> 0.373--> 0.342. Drug test positive for cocaine. Patient was admitted to the hospitalist service and was seen by Hematology. They started Neupogen and prophylactic Levaquin. He was also seen by Cardiology and underwent an echo which was detailed above. The patient's chest pain completely resolved and Cardiology is going to follow him outpatient. He underwent a chest abdomen pelvis CT which showed no acute intrathoracic, abdominal or pelvic process and did show mild splenomegaly. There were no enlarged lymph nodes. The patient stated he had some swelling to his left neck and the left side of his tongue and a soft tissue neck was completed which showed only dental disease and mild bilateral submandibular lymphadenopathy which was likely reactive. Oncology thought this was likely due to a virus and no bone marrow biopsy was needed. They plan to follow him outpatient and proceed with further workup if needed. I spoke with the patient and his about the findings. The day of discharge he was feeling much better and his neutrophils had improved. He remained afebrile and his body aches/chills
[2021-01-25] MEDS: ASPIRIN 81 MG CHEWABLE TABLET PO (14:17)
[2021-01-29 07:35] LABS: CMV DNA Quant PCR IU/mL Not Detected; Cytomegalovirus DNA Quant PCR Not Detected log IU/mL; Cytomegalovirus DNA Source Whole Blood
[2021-01-30 01:57] LABS: CMV DNA, PCR Saliva <2.3 log IU/mL; CMV DNA, PCR Saliva <200 IU/mL
--- NOTE | 2021-01-30 10:36 | PC.NURSE ---
CMV is negative. Parvo is negative. Blood cx are negative.
== END 2021-01-25 15:58 | disposition home or self-care (01) | DRG 865 ==
LOC: ANHED 21:09 → ANHIMU 01-23 07:37 → ANH3MEDSUR 01-25 14:13 → ANHIMU 01-26 13:54
PROVIDERS: Physician Assistant; Admitting Provider Family Medicine; Emergency Provider Emergency Medicine; Visit Provider Internal Medicine
DX: B34.9 Viral infection, unspecified (principal); I21.A1 Myocardial infarction type 2; F14.90 Cocaine use, unspecified, uncomplicated; Z20.822 Contact with and (suspected) exposure to COVID-19; D70.9 Neutropenia, unspecified; R22.0 Localized swelling, mass and lump, head; R22.1 Localized swelling, mass and lump, neck; K14.8 Other diseases of tongue; Z86.16 Personal history of COVID-19
CPT/HCPCS: 36415; 70491; 71046; 71260; 74177; 80048; 80053; 80074; 80076; 80307; 82550; 83605; 83690; 83880; 84145; 84443; 84484; 85025; 85380; 85610; 85652; 85730; 86140; 86308; 86703; 86747; 87040; 87081; 87497; 87804; 87880; 93005; 93306; 96372; 99285; A9270; C9803; G0378; G0432; J7120; Q5101; Q9967; U0003; U0005

== ENCOUNTER 2024-02-09 12:19 | Emergency (ER) | payer SELFPAY ==
--- NOTE | ~2024-02-09 | XR_ITS ---
EXAMINATION: XR chest 2V DATE: 02/09/2024 12:47 INDICATION: Cough. TECHNIQUE: Frontal and lateral views of the chest were obtained. COMPARISON: Chest 2 views 01/22/2021, chest CT 01/23/2021 FINDINGS: There is no pneumonia, pleural effusion, or pneumothorax. The heart size is normal. IMPRESSION: 1. No acute cardiopulmonary disease. Reviewed, dictated and finalized at location A. [facility]
[2024-02-09 12:31] VITALS: BP 154/98; PULSE 78; RESP 18; TEMP 36.6; O2SAT 99
--- NOTE | 2024-02-09 12:40 | ED.URI ---
HPI - URI/Sore Throat General Chief Complaint: Upper Respiratory Infection Stated Complaint: cold symptoms Time Seen by Provider: 02/09/24 12:40 Source: patient Mode of arrival: ambulatory Limitations: no limitations History of Present Illness HPI Narrative: Payam is a 48-year-old male patient presenting to the clinic today with complaints continuous dry cough for the past 4 weeks. He reports the cough is been off and on. He feels at nighttime that he may be wheezing and having little rattling in the chest. He denies any fevers, chills, body aches, sore throat, shortness of breath, or chest pain. Denies any GERD symptoms. Denies feeling as though he is having postnasal drip. He is a nonsmoker. MD elicited complaint: cough Related Data Home Medications ?Medication ?Instructions ?Recorded ?Confirmed ?Last Taken ?Type lisinopril 10 mg tablet mg 02/09/24 Unknown History Allergies Allergy/AdvReac Type Severity Reaction Status Date / Time No Known Allergies Allergy Verified 01/22/21 17:05 Review of Systems Review of Systems: Pertinent positives per HPI. Patient denies any fever, chills, rash, headache, visual changes, dizziness, shortness of breath, chest pain, palpitations, nausea, vomiting, diarrhea, constipation, abdominal pain, or any urinary issues. PMFSH Past Medical History Medical History (Updated 02/09/24 @ 12:51 by Claudy Valdivia APRN) No family history of coronary artery disease No significant past medical history Family History Family History Other Unknown family medical history Social History Social History Smoking status: Never smoker Alcohol intake: never Substance use: never Spiritual care concerns: No Comments At the time of my signature, I reviewed and agree with the nursing past medical, surgical, social, and family history. There is no relevant family history pertinent to the patient complaint. Exam Narrative: General: Well-developed, well nourished, in no apparent distress Head: Normocephalic, atraumatic Eyes: Pupils equally round and reactive to light bilaterally, EOM intact, sclera and conjunctive clear, no discharge, lids normal Ears: TMs intact and clear, ear canals clear, no drainage, grossly hearing normal. Nose: Nares patent, no discharge, no inflammation, no sinus tenderness. Mouth: Oral pharynx without lesions or masses, good dentition, MMM. Neck: Supple, trachea midline, no enlargement of anterior or posterior cervical nodes, no thyroid masses or goiter palpable. Cardio: Regular rate and rhythm, s1 and s2 normal, no murmur appreciated. Resp: Faint crackles over the right upper and mid lobe posterior, no rhonchi, wheezing or rubs Course Course Emergency Course: Portions of this record may have been created with voice recognition software. Level of Care: Express Care Visit Vital Signs Vital signs: Vital Signs Temperature 36.6 C 02/09/24 12:31 Pulse Rate 78 02/09/24 12:31 Respiratory Rate 18 02/09/24 12:31 Blood Pressure 154/98 H 02/09/24 12:31 Pulse Oximetry 99 02/09/24 12:31 Oxygen Delivery Room Air 02/09/24 12:31 Temperature 36.6 C 02/09/24 12:31 Pulse Rate 78 02/09/24 12:31 Respiratory Rate 18 02/09/24 12:31 Blood Pressure 154/98 H 02/09/24 12:31 Pulse Oximetry 99 02/09/24 12:31 Oxygen Delivery Room Air 02/09/24 12:31 Vital signs reviewed MDM - URI/Sore Throat MDM Narrative Medical decision making narrative: At the time of visit patient is resting comfortably on the exam table. Patient appears to be nontoxic. Diagnostics: Chest x-rays negative for any acute cardiopulmonary process. Plan: I suspect patient has bronchitis. Prescription for azithromycin, prednisone, and albuterol inhaler was sent to pharmacy Supportive measures were discussed with the patient and they voiced understanding discharge instructions and agrees to treatment plan. Return precautions reviewed Differential Diagnosis Differential diagnosis: Likely upper respiratory infection, otitis media, sinusitis, viral infection, bronchitis, influenza, pharyngitis and other (COVID) Discharge Plan Discharge Clinical Impression: Bronchitis Patient Disposition: Home, Self-Care Condition: Stable Instructions: Antibiotic Form, Acute Bronchitis (ED) Additional Instructions: Chest x-rays negative for any acute cardiopulmonary process Take prescription medications only as prescribed-azithromycin, albuterol inhaler, and prednisone Increase fluids and stay well hydrated Tylenol/motrin for pain/fever Flonase and OTC antihistamines as directed Vicks vapor rub to open sinuses Sinus rinses for congestion Cepacol spray, cough drops, throat lozenges, warm tea with honey/lemon, gargle salt water to soothe throat BRAT diet for diarrhea Clear liquids x 24 hours then advance as tolerated for nausea/vomiting Go to the ED if you develop a worsening in your condition- high fever not controlled by Tylenol or Motrin, dehydration, weakness, lethargy, shortness of breath, or chest pain. Follow up with your PCP in 3-5 days if symptoms persist. Patient Language: Occitan Prescriptions: New azithromycin 250 mg tablet See Rx Instructions .ROUTE .COMPLEX Qty: 6 0RF Rx Instructions: For 250 mg dose pack: take 500 mg today (day 1), then 250 mg for 4 days (days 2-5) prednisone 20 mg tablet 40 mg PO DAILY 5 Days Qty: 10 0RF albuterol sulfate 90 mcg/actuation HFA aerosol inhaler 2 puff inhalation Q4-6H PRN (Reason: shortness of breath or wheezing) 30 Days Qty: 8.5 0RF No Action lisinopril 10 mg tablet Follow-up/Referrals: UNKNOWN,DOCTOR [Primary Care Provider] - Time of Disposition: 12:52 Quality NIHSS Nursing Documentation ED NIHSS nursing documentation: reviewed/agree
== END 2024-02-09 13:00 | disposition home or self-care (01) ==
PROVIDERS: Emergency Provider Nurse Practitioner Family
DX: J40 Bronchitis, not specified as acute or chronic (principal)
CPT/HCPCS: 71046; 99213; G0463